=== PATIENT | female | born 1985 | race Hispanic/Latino ===

== ENCOUNTER 2018-04-07 08:27 | Emergency (ER) | payer OTHER ==
[2018-04-07] MEDS ORDERED: IBUPROFEN 400 MG TAB ONE (09:03)
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
== END 2018-04-07 09:16 | disposition home or self-care (01) ==
LOC: ER 08:27
DX: S00.81XA Abrasion of other part of head, initial encounter (principal); W26.8XXA Contact with other sharp object(s), not elsewhere classified, initial encounter; Y93.89 Activity, other specified; Y92.9 Unspecified place or not applicable
CPT/HCPCS: 99283